=== PATIENT | male | born 1975 | race American Indian/Alaskan Native ===

== ENCOUNTER 2022-05-31 17:33 | Emergency (ER) | payer BC, OTHER ==
[2022-05-31 17:46] VITALS: BP 132/100; PULSE 97
== END 2022-05-31 18:37 | disposition home or self-care (01) ==
LOC: JP.ED 17:33
DX: K08.89 Other specified disorders of teeth and supporting structures (principal); I10 Essential (primary) hypertension; F17.210 Nicotine dependence, cigarettes, uncomplicated; Z79.899 Other long term (current) drug therapy
CPT/HCPCS: 99281; 99282